=== PATIENT | male | born 1985 | race Caucasian/White ===

== ENCOUNTER 2018-05-04 11:25 | Emergency (ER) | payer BC ==
[2018-05-04] MEDS ORDERED: ASPIRIN 81 MG CHEWABLE TABLET ONE ×2 (12:03→12:08)
[2018-05-04 12:12] LABS: Absolute Monocytes 0.5 K/uL (0.1-1.3); Absolute Neutrophil 4.2 K/uL (1.8-8.0); Basophils % 0.4 % (0-1.3); Eosinophils % 0.3 % (0-4.4); Hematocrit 44.7 % (39.6-49.0); Lymphocytes % 30.3 % (15.3-44.8); MPV 8.4 fL (7.6-11.3); Monocytes % 6.9 % (3.3-12.3); RBC Red Blood Cell Count 5.04 M/uL (4.33-5.43)
[2018-05-04] MEDS ORDERED: HYDROMORPHONE HCL 0.5 MG/0.5 ML INJ ONE (12:21)
[2018-05-04] MEDS ORDERED: ONDANSETRON 4 MG/2 ML VIAL ONE (12:21)
[2018-05-04] MEDS ORDERED: KETOROLAC 30 MG/ML INJ ONE (12:21)
--- NOTE | 2018-05-04 12:24 | RAD REPORT ---
EXAM DESCRIPTION: RAD - Chest Single View - 05/04/2018 12:15 pm CLINICAL HISTORY: CHEST PAIN Chest pain. COMPARISON: No comparisons FINDINGS: Portable technique limits examination quality. The lungs are grossly clear. The heart is normal in size. No displaced fractures. IMPRESSION: No acute intrathoracic process suspected.
[2018-05-04 12:33] LABS: ALT/SGPT 55 U/L (12-78); AST/SGOT 24 U/L (15-37); Albumin 4.3 g/dL (3.4-5.0); Alkaline Phosphatase 70 U/L (45-117); BUN Blood Urea Nitrogen 8 mg/dL (7-18); Bicarbonate 25 mmol/L (21-32); Bilirubin Direct 0.1 mg/dL (0-0.2); Bilirubin Total 0.5 mg/dL (0.2-1.0); Glucose Level 109 mg/dL (74-106); Potassium 3.5 mmol/L (3.5-5.1); Protein, Total 8.1 g/dL (6.4-8.2); Sodium Level 142 mmol/L (136-145); Troponin (Emerg Dept Use Only) < 0.02 ng/mL (0.0-0.045)
--- NOTE | 2018-05-04 13:30 | ER ---
Nurse's Notes [facility] Name: Jovani Vernon Age: 33 yrs Sex: Male : 1985 Arrival Date: 05/04/2018 Time: 11:27 Bed 16 Private MD: None, None Diagnosis: Anxiety disorder, unspecified;Chest pain, unspecified;Paresthesia of skin Presentation: 05/04 11:34 Presenting complaint: Patient states: "I'm having some difficulties in my marriage and aa5 I've been stressed and today I was at work and I started sweating, having chest pain, and my left arm went numb and then my right arm went numb". Pt also reports heart palpitations. Pt states "I've smoked about 50 cigarettes in the last 24 hrs". Transition of care: patient was not received from another setting of care. Onset of symptoms was May 04, 2018. Risk Assessment: Do you want to hurt yourself or someone else? Patient reports no desire to harm self or others. Initial Sepsis Screen: Does the patient meet any 2 criteria? No. Patient's initial sepsis screen is negative. Does the patient have a suspected source of infection? No. Patient's initial sepsis screen is negative. Care prior to arrival: None. 11:34 Method Of Arrival: Ambulatory aa5 11:34 Acuity: BOO 3 aa5 Historical: - Allergies: 11:36 No Known Allergies; aa5 - PMHx: 11:36 None; aa5 - PSHx: 11:36 None; aa5 - Immunization history:: Flu vaccine status is unknown. - Social history:: Smoking status: Patient uses tobacco products, smokes one pack cigarettes per day. - Ebola Screening: : No symptoms or risks identified at this time. Screenin:00 Abuse screen: Denies threats or abuse. Denies injuries from another. Nutritional jl7 screening: No deficits noted. Tuberculosis screening: No symptoms or risk factors identified. Fall Risk IV access (20 points). Total Lopez Fall Scale indicates No Risk (0-24 pts). Assessment: 12:00 General: Appears in no apparent distress. uncomfortable, Behavior is calm, cooperative, jl7 appropriate for age. Pain: Complains of pain in anterior aspect of left upper chest Pain radiates to left jaw and left arm Pain currently is 6 out of 10 on a pain scale. Quality of pain is described as sharp, stabbing. Neuro: Level of Consciousness is awake, alert, obeys commands, Oriented to person, place, time, situation. Cardiovascular: Heart tones S1 S2 present Patient's skin is warm and dry. Respiratory: Airway is patent Respiratory effort is even, unlabored, Respiratory pattern is regular, symmetrical, Breath sounds are clear bilaterally. GI: No signs and/or symptoms were reported involving the gastrointestinal system. : No signs and/or symptoms were reported regarding the genitourinary system. EENT: Derm: Skin is pink, warm \\T\\ dry. Musculoskeletal: No signs and/or symptoms reported regarding the musculoskeletal system. 13:00 Reassessment: Patient appears in no apparent distress at this time. No changes from jl7 previously documented assessment. Patient and/or family updated on plan of care and expected duration. Pain level reassessed. Patient is alert, oriented x 3, equal unlabored respirations, skin warm/dry/pink. Vital Signs: 11:37 BP 157 / 98; Pulse 83; Resp 18 S; Temp 97.8(TE); Pulse Ox 97% on R/A; Weight 106.59 kg aa5 (R); Height 6 ft. 0 in. (182.88 cm) (R); Pain 6/10; 12:35 BP 148 / 97 LA; Pulse 66; Resp 16 S; Pulse Ox 100% on R/A; jl7 12:37 BP 150 / 100 RA; Pulse 75; Resp 16 S; Pulse Ox 97% on R/A; jl7 13:54 BP 152 / 97; Pulse 83; Resp 16 S; Pulse Ox 100% on R/A; jl7 11:37 Body Mass Index 31.87 (106.59 kg, 182.88 cm) aa5 ED Course: 11:27 Patient arrived in ED. dp 11:27 None, None is Private Physician. dp 11:34 Arm band placed on. aa5 11:36 Triage completed. aa5 11:45 Jodi Iglesias, TAMIE is Primary Nurse. jl7 11:47 Katt Olson FNP-C is [facility]. snw 11:47 Dereje Yung MD is Attending Physician. snw 11:58 EKG done, by hearing aid technician. reviewed by Katt CORONADO. 3 12:00 Patient has correct armband on for positive identification. Placed in gown. Bed in low jl7 position. Call light in reach. Side rails up X 1. hospital monitor on. Pulse ox on. NIBP on. Warm blanket given. 12:00 Initial lab(s) drawn, by me, sent to lab. Inserted saline lock: 20 gauge in left jl7 antecubital area, using aseptic technique. Blood collected. 12:15 XRAY Chest (1 view) In Process Unspecified. EDMS 12:15 X-ray completed. Portable x-ray completed in exam room. Patient tolerated procedure mh1 well. 13:54 No provider procedures requiring assistance completed. IV discontinued, intact, jl7 bleeding controlled, No redness/swelling at site. Pressure dressing applied. Administered Medications: 12:00 Drug: Aspirin Chewable Tablet 324 mg Route: PO; jl7 12:30 Follow up: Response: No adverse reaction jl7 Outcome: 13:30 Discharge ordered by . snwilly 13:54 Discharged to home ambulatory. jl7 13:54 Condition: stable 13:54 Discharge instructions given to patient, family, Instructed on discharge instructions, follow up and referral plans. Demonstrated understanding of instructions, follow-up care. 13:55 Patient left the ED. jl7 Signatures: Dispatcher [employer] EDVT Katt Olson FNP-C FNP-CsnKiki Webber 1 Yuko Fragoso, RN RN aa5 Jodi Iglesias RN RN jl7 Leslie Ludwig 3 Sony Cole Corrections: (The following items were deleted from the chart) 11:38 11:34 Presenting complaint: Patient states: "I'm having some difficulties in my aa5 marriage and I've been stressed and today I was at work and I started sweating, having chest pain, and my left arm went numb and then my right arm went numb". Pt also reports heart palpitations aa5
--- NOTE | 2018-05-04 13:30 | EDPHYS ---
Physician Documentation [facility] Name: Jovani Vernon Age: 33 yrs Sex: Male : 1985 Arrival Date: 05/04/2018 Time: 11:27 Bed 16 Private MD: None, None ED Physician Dereje Yung HPI: 05/04 12:14 This 33 yrs old Male presents to ER via Ambulatory with complaints of Left snw arm numbness/possible panic attack. 12:14 Onset: The symptoms/episode began/occurred suddenly, just prior to arrival. Associated snw signs and symptoms: Pertinent positives: chest pain, cough, shortness of breath, numbness to bilateral arms. Modifying factors: The patient symptoms are alleviated by nothing. The patient has experienced a previous episode, but today's symptoms are worse. It is unknown whether or not the patient has recently seen a physician. + high stress at present. Historical: - Allergies: 11:36 No Known Allergies; aa5 - PMHx: 11:36 None; aa5 - PSHx: 11:36 None; aa5 - Immunization history:: Flu vaccine status is unknown. - Social history:: Smoking status: Patient uses tobacco products, smokes one pack cigarettes per day. - Ebola Screening: : No symptoms or risks identified at this time. ROS: 12:14 Eyes: Negative for injury, pain, redness, and discharge, ENT: Negative for injury, snw pain, and discharge, Neck: Negative for injury, pain, and swelling. 12:14 Back: Negative for injury and pain, : Negative for injury, bleeding, discharge, and swelling. 12:14 Neuro: Negative for headache, weakness, numbness, tingling, and seizure. 12:14 Constitutional: Positive for body aches, malaise. 12:14 Cardiovascular: Positive for chest pain, palpitations. 12:14 Respiratory: Positive for cough, shortness of breath. 12:14 Abdomen/GI: Positive for nausea. 12:14 MS/extremity: Positive for paresthesias, tingling, numbness. 12:14 Psych: Positive for anxiety. Exam: 12:14 Head/Face: Normocephalic, atraumatic. Eyes: Pupils equal round and reactive to light, snw extra-ocular motions intact. Lids and lashes normal. Conjunctiva and sclera are non-icteric and not injected. Cornea within normal limits. Periorbital areas with no swelling, redness, or edema. ENT: Nares patent. No nasal discharge, no septal abnormalities noted. Tympanic membranes are normal and external auditory canals are clear. Oropharynx with no redness, swelling, or masses, exudates, or evidence of obstruction, uvula midline. Mucous membranes moist. Neck: Trachea midline, no thyromegaly or masses palpated, and no cervical lymphadenopathy. Supple, full range of motion without nuchal rigidity, or vertebral point tenderness. No Meningismus. Chest/axilla: Normal chest wall appearance and motion. Nontender with no deformity. No lesions are appreciated. Cardiovascular: Regular rate and rhythm with a normal S1 and S2. No gallops, murmurs, or rubs. Normal PMI, no JVD. No pulse deficits. Respiratory: Lungs have equal breath sounds bilaterally, clear to auscultation and percussion. No rales, rhonchi or wheezes noted. No increased work of breathing, no retractions or nasal flaring. Abdomen/GI: Soft, non-tender, with normal bowel sounds. No distension or tympany. No guarding or rebound. No evidence of tenderness throughout. Back: No spinal tenderness. No costovertebral tenderness. Full range of motion. Skin: Warm, dry with normal turgor. Normal color with no rashes, no lesions, and no evidence of cellulitis. MS/ Extremity: Pulses equal, no cyanosis. Neurovascular intact. Full, normal range of motion. Neuro: Awake and alert, GCS 15, oriented to person, place, time, and situation. Cranial nerves II-XII grossly intact. Motor strength 5/5 in all extremities. Sensory grossly intact. Cerebellar exam normal. Normal gait. 12:14 Constitutional: The patient appears alert, awake, anxious. 12:14 Psych: Behavior/mood is pleasant, cooperative, anxious. Vital Signs: 11:37 BP 157 / 98; Pulse 83; Resp 18 S; Temp 97.8(TE); Pulse Ox 97% on R/A; Weight 106.59 kg aa5 (R); Height 6 ft. 0 in. (182.88 cm) (R); Pain 6/10; 12:35 BP 148 / 97 LA; Pulse 66; Resp 16 S; Pulse Ox 100% on R/A; jl7 12:37 BP 150 / 100 RA; Pulse 75; Resp 16 S; Pulse Ox 97% on R/A; jl7 13:54 BP 152 / 97; Pulse 83; Resp 16 S; Pulse Ox 100% on R/A; jl7 11:37 Body Mass Index 31.87 (106.59 kg, 182.88 cm) aa5 MDM: 11:48 Patient medically screened. snw 13:34 Data reviewed: vital signs, nurses notes. Data interpreted: Pulse oximetry: on room air snw is 97 %. Interpretation: normal. Counseling: I had a detailed discussion with the patient and/or guardian regarding: the historical points, exam findings, and any diagnostic results supporting the discharge/admit diagnosis, the presence of at least one elevated blood pressure reading (>120/80) during this emergency department visit, lab results, radiology results, the need for outpatient follow up, to return to the emergency department if symptoms worsen or persist or if there are any questions or concerns that arise at home. Special discussion: Based on the patient's history, exam, and Dx evaluation, there is no indication for emergent intervention or inpatient Tx. It is understood by the patient/guardian that if the Sx's persist or worsen they need to return immediately for re-evaluation. I have referred the patient to see his PCP for further evaluation of high blood pressure. Based on the history and exam findings, there is no indication for further emergent testing or inpatient evaluation. I discussed with the patient/guardian the need to see the primary care provider for further evaluation of the symptoms. I discussed with the patient/guardian the need to see the psychiatrist for further evaluation of the symptoms. 05/04 11:48 Order name: Basic Metabolic Panel; Complete Time: 12:36 snw 05/04 11:48 Order name: CBC with Diff; Complete Time: 12:24 snw 05/04 11:48 Order name: LFT's; Complete Time: 12:36 snw 05/04 11:48 Order name: Magnesium; Complete Time: 12:36 w 05/04 11:48 Order name: PT-INR; Complete Time: 12:24 snw 05/04 11:48 Order name: Troponin (emerg Dept Use Only); Complete Time: 12:36 snw 05/04 11:48 Order name: XRAY Chest (1 view); Complete Time: 12:27 snw 05/04 11:48 Order name: EKG; Complete Time: 11:49 snw 05/04 11:48 Order name: Cardiac monitoring; Complete Time: 13:04 [facility] 05/04 11:48 Order name: EKG - Nurse/Tech; Complete Time: 13:04 w 05/04 11:48 Order name: IV Saline Lock; Complete Time: 13:03 [facility] 05/04 11:48 Order name: Labs collected and sent; Complete Time: 13:03 [facility] 05/04 11:48 Order name: O2 Per Protocol; Complete Time: 13:03 w 05/04 11:48 Order name: O2 Sat Monitoring; Complete Time: 13:03 [facility] 05/04 11:48 Order name: Bilateral blood pressure; Complete Time: 12:37 snw Administered Medications: 12:00 Drug: Aspirin Chewable Tablet 324 mg Route: PO; jl7 12:30 Follow up: Response: No adverse reaction jl7 Disposition: 15:07 Co-signature as Attending Physician, Dereje Yung MD I agree with the assessment and moustapha plan of care. Disposition: 05/04/18 13:30 Discharged to Home. Impression: Anxiety disorder, unspecified, Chest pain, unspecified, Paresthesia of skin. - Condition is Stable. - Discharge Instructions: Panic Attacks, Nonspecific Chest Pain, Paresthesia, Generalized Anxiety Disorder. - Work release form, Medication Reconciliation Form, Thank You Letter, Antibiotic Education, Prescription Opioid Use form. - Follow up: Private Physician; When: 2 - 3 days; Reason: Recheck today's complaints, Continuance of care, Re-evaluation by your physician. Follow up: Emergency Department; When: As needed; Reason: Worsening of condition. Signatures: Dispatcher [employer] Dereje Watson MD MD cha Therrien, Shelly, DOWEL SETTING MACHINE OPERATOR-C DOWEL SETTING MACHINE OPERATOR-Csnw Yuko Fragoso, RN RN [email or web address] Jodi Iglesias RN RN jl7 Corrections: (The following items were deleted from the chart) 13:55 13:30 05/04/2018 13:30 Discharged to Home. Impression: Anxiety disorder, unspecified; jl7 Chest pain, unspecified; Paresthesia of skin. Condition is Stable. Forms are Medication Reconciliation Form, Thank You Letter, Antibiotic Education, Prescription Opioid Use. Follow up: Private Physician; When: 2 - 3 days; Reason: Recheck today's complaints, Continuance of care, Re-evaluation by your physician. Follow up: Emergency Department; When: As needed; Reason: Worsening of condition. snw
--- NOTE | 2018-05-04 17:28 | EKG ---
Test Date: 2018-05-04 Test Time: 11:48:20 Network Support: [facility]A MEASUREMENT RESULTS: Intervals: Rate: 73 NJ: 128 QRSD: 96 QT: 376 QTc: 414 [place]: P: 45 NJ: 128 QRS: 60 T: 28 INTERPRETIVE STATEMENTS: Normal sinus rhythm Normal ECG No previous ECG available for comparison Electronically Signed On 05-04-18 17:27:10 CDT by Juan Renee
== END 2018-05-04 13:55 | disposition home or self-care (01) ==
LOC: ER 11:25
DX: F41.9 Anxiety disorder, unspecified (principal); R07.9 Chest pain, unspecified; R20.2 Paresthesia of skin; Z72.0 Tobacco use; F17.210 Nicotine dependence, cigarettes, uncomplicated
CPT/HCPCS: 36415; 71045; 80048; 80076; 83735; 84484; 85025; 85610; 93005; 99284; J1170; J2405

== ENCOUNTER 2018-05-13 10:49 | Emergency (ER) | payer BC ==
[2018-05-13] MEDS ORDERED: MEPERIDINE HCL 50 MG/ML AMP ONE (11:55)
[2018-05-13] MEDS ORDERED: IBUPROFEN 400 MG TAB ONE (11:56)
[2018-05-13] MEDS ORDERED: DEXAMETHASONE 10 MG/ML VIAL ONE (11:56)
--- NOTE | 2018-05-13 12:37 | EDPHYS ---
Physician Documentation [facility] Name: Jovani Vernon Age: 33 yrs Sex: Male : 1985 Arrival Date: 05/13/2018 Time: 10:51 Bed 15 Private MD: ED Physician Vin Dunlap HPI: 05/13 11:32 This 33 yrs old Male presents to ER via Ambulatory with complaints of Back rn Pain. 11:32 The patient presents with pain that is acute. The symptoms are located in the low back. rn Onset: The symptoms/episode began/occurred 2 day(s) ago. The pain radiates to the right leg. Modifying factors: The patient symptoms are alleviated by remaining still, specific position, the patient symptoms are aggravated by any movement. Severity of symptoms: At their worst the symptoms were moderate, in the emergency department the symptoms are unchanged. The patient has experienced similar episodes in the past. Denies urinary symptoms, no hx of kidney stones. + chronic back pain but never this bad.. Historical: - Allergies: 11:20 PENICILLINS; aa5 - PMHx: 11:20 None; aa5 - PSHx: 11:20 None; aa5 - Immunization history:: Flu vaccine is not up to date. - Social history:: Smoking status: Patient uses tobacco products, smokes one pack cigarettes per day. - Ebola Screening: : No symptoms or risks identified at this time. - Family history:: not pertinent. - Hospitalizations: : No recent hospitalization is reported. ROS: 11:32 Constitutional: Negative for fever, chills, and weight loss, Eyes: Negative for injury, rn pain, redness, and discharge, Neck: Negative for injury, pain, and swelling, Cardiovascular: Negative for chest pain, palpitations, and edema, Respiratory: Negative for shortness of breath, cough, wheezing, and pleuritic chest pain, Abdomen/GI: Negative for abdominal pain, nausea, vomiting, diarrhea, and constipation, Back: + right lower back pain MS/Extremity: Negative for injury and deformity, Skin: Negative for injury, rash, and discoloration, Neuro: Negative for headache, weakness, and seizure, + tingling and numbness RLE Exam: 11:32 Constitutional: This is a well developed, well nourished patient who is awake, alert, rn appears in pain, laying prone in bed Abdomen/GI: Soft, non-tender. No distension or tympany. No guarding or rebound. No evidence of tenderness throughout. Back: No spinal tenderness. No costovertebral tenderness. + right lower back tenderness, painful ROM with twisting and movement of RLE Skin: Warm, dry with normal turgor. Normal color with no rashes, no lesions, and no evidence of cellulitis. MS/ Extremity: Pulses equal, no cyanosis. Neuro: Awake and alert, GCS 15, oriented to person, place, time, and situation. Vital Signs: 11:21 BP 147 / 105; Pulse 75; Resp 18 S; Temp 98.0(TE); Pulse Ox 98% on R/A; Weight 106.59 kg aa5 (R); Height 6 ft. 0 in. (182.88 cm) (R); Pain 10/10; 12:50 BP 142 / 95; Pulse 74; Resp 18; Pulse Ox 100% on R/A; hj 11:21 Body Mass Index 31.87 (106.59 kg, 182.88 cm) aa5 MDM: 11:23 Patient medically screened. rn 12:36 Differential diagnosis: arthritis, chronic back pain, Fatigue Osteoarthritis sprain, rn Ureterolithiasis radiculopathy. Data reviewed: vital signs, nurses notes, and as a result, I will discharge patient. Counseling: I had a detailed discussion with the patient and/or guardian regarding: the historical points, exam findings, and any diagnostic results supporting the discharge/admit diagnosis, the need for outpatient follow up, to return to the emergency department if symptoms worsen or persist or if there are any questions or concerns that arise at home. Response to treatment: the patient's symptoms have mildly improved after treatment, and as a result, I will discharge patient. Special discussion: I discussed with the patient/guardian in detail that at this point there is no indication for admission to the hospital. It is understood, however, that if the symptoms persist or worsen the patient needs to return immediately for re-evaluation. Based on the history and exam findings, there is no indication for further emergent testing or inpatient evaluation. I discussed with the patient/guardian the need to see the back specialist for further evaluation of the symptoms. 12:37 ED course: More comfortable, still having pain, will dc home with continuation of rn meds/stretching/heat and pcp f/u. . 05/13 11:30 Order name: IV Start; Complete Time: 11:47 rn Administered Medications: 11:37 Drug: Decadron - Dexamethasone 10 mg Route: IVP; Site: left forearm; hj 11:37 Drug: Demerol 50 mg Route: IVP; Site: left forearm; hj 11:37 Drug: Motrin 800 mg Route: PO; hj 12:48 Drug: morphine 4 mg Route: IVP; Site: right forearm; hj Disposition: 05/13/18 12:37 Discharged to Home. Impression: Low back pain, Radiculopathy, lumbosacral region. - Condition is Stable. - Discharge Instructions: Back Pain, Adult, Lumbosacral Radiculopathy. - Prescriptions for Tylenol- Codeine #3 300-30 mg Oral Tablet - take 2 tablets by ORAL route every 6 hours As needed; 20 tablet. Cyclobenzaprine 10 mg Oral Tablet - take 1 tablet by ORAL route every 8 hours As needed; 20 tablet. Medrol (Sudeep) 4 mg Oral Tablets, Dose Pack - take 1 tablet by ORAL route as directed - follow package instructions; 1 packet. - Medication Reconciliation Form, Thank You Letter, Antibiotic Education, Prescription Opioid Use form. - Follow up: Private Physician; When: As needed; Reason: Recheck today's complaints, Re-evaluation by your physician. - Problem is an acute exacerbation. - Symptoms have improved. Signatures: Vin Dunlap MD MD rn Calderon, Audri, RN RN [facility] Mariano Amado RN RN Corrections: (The following items were deleted from the chart) 11:13 11:11 Allergies: No Known Allergies; aa5 aa5 11:13 11:11 PSHx: None; aa5 aa5 11:13 11:12 Social history: Smoking status: Patient/guardian denies using tobacco, aa5 5 11:13 11:12 Immunization history: Flu vaccine is not up to date. aa5 aa5 11:21 11:11 Ebola Screening: No symptoms or risks identified at this time aa5 aa5 12:50 12:37 05/13/2018 12:37 Discharged to Home. Impression: Low back pain; Radiculopathy, hj lumbosacral region. Condition is Stable. Forms are Medication Reconciliation Form, Thank You Letter, Antibiotic Education, Prescription Opioid Use. Follow up: Private Physician; When: As needed; Reason: Recheck today's complaints, Re-evaluation by your physician. Problem is an acute exacerbation. Symptoms have improved. rn
--- NOTE | 2018-05-13 12:37 | ER ---
[facility] Name: Jovani Vernon Age: 33 yrs Sex: Male : 1985 Arrival Date: 05/13/2018 Time: 10:51 Bed 15 Private MD: Diagnosis: Low back pain;Radiculopathy, lumbosacral region Presentation: 05/13 11:19 Presenting complaint: Patient states: pain to right lower back radiating down to right aa5 leg x 1 day ago. Pt appears uncomfortable in triage. Denies known injury. Transition of care: patient was not received from another setting of care. Onset of symptoms. Risk Assessment: Do you want to hurt yourself or someone else? Patient reports no desire to harm self or others. Initial Sepsis Screen: Does the patient meet any 2 criteria? No. Patient's initial sepsis screen is negative. Does the patient have a suspected source of infection? No. Patient's initial sepsis screen is negative. Care prior to arrival: None. 11:19 Method Of Arrival: Ambulatory aa5 11:19 Acuity: BOO 4 aa5 Historical: - Allergies: 11:20 PENICILLINS; aa5 - PMHx: 11:20 None; aa5 - PSHx: 11:20 None; aa5 - Immunization history:: Flu vaccine is not up to date. - Social history:: Smoking status: Patient uses tobacco products, smokes one pack cigarettes per day. - Ebola Screening: : No symptoms or risks identified at this time. - Family history:: not pertinent. - Hospitalizations: : No recent hospitalization is reported. Screenin:30 Abuse screen: Denies threats or abuse. Denies injuries from another. Nutritional hj screening: No deficits noted. Tuberculosis screening: No symptoms or risk factors identified. Fall Risk None identified. Assessment: 11:30 General: Appears in no apparent distress. uncomfortable, Behavior is calm, cooperative, hj appropriate for age. Pain: Complains of pain in back and right leg. Neuro: Level of Consciousness is awake, alert, obeys commands, Oriented to person, place, time, situation, Appropriate for age. Cardiovascular: Capillary refill < 3 seconds Patient's skin is warm and dry. Respiratory: Airway is patent Respiratory effort is even, unlabored, Respiratory pattern is regular, symmetrical. GI: No signs and/or symptoms were reported involving the gastrointestinal system. : No signs and/or symptoms were reported regarding the genitourinary system. EENT: Derm: No signs and/or symptoms reported regarding the dermatologic system. Musculoskeletal: No signs and/or symptoms reported regarding the musculoskeletal system. 11:30 Reassessment: Patient and/or family updated on plan of care and expected duration. Pain hj level reassessed. Patient is alert, oriented x 3, equal unlabored respirations, skin warm/dry/pink. awaiting for pain reassessment;. Vital Signs: 11:21 BP 147 / 105; Pulse 75; Resp 18 S; Temp 98.0(TE); Pulse Ox 98% on R/A; Weight 106.59 kg aa5 (R); Height 6 ft. 0 in. (182.88 cm) (R); Pain 10/10; 12:50 BP 142 / 95; Pulse 74; Resp 18; Pulse Ox 100% on R/A; hj 11:21 Body Mass Index 31.87 (106.59 kg, 182.88 cm) aa5 ED Course: 10:51 Patient arrived in ED. rg4 11:11 Triage completed. aa5 11:11 Arm band placed on. aa5 11:23 Vin Dunlap MD is Attending Physician. rn 11:30 Patient has correct armband on for positive identification. Bed in low position. Call hj light in reach. Side rails up X 1. 11:36 Mariano Amado, RN is Primary Nurse. hj 11:37 Inserted saline lock: 22 gauge in left forearm, using aseptic technique. hj 12:49 No provider procedures requiring assistance completed. IV discontinued, intact, hj bleeding controlled, No redness/swelling at site. Pressure dressing applied. Administered Medications: 11:37 Drug: Decadron - Dexamethasone 10 mg Route: IVP; Site: left forearm; hj 11:37 Drug: Demerol 50 mg Route: IVP; Site: left forearm; hj 11:37 Drug: Motrin 800 mg Route: PO; hj 12:48 Drug: morphine 4 mg Route: IVP; Site: right forearm; hj Outcome: 12:37 Discharge ordered by . rn 12:49 Discharged to home ambulatory, with family. hj 12:49 Condition: stable 12:49 Discharge instructions given to patient, family, Instructed on discharge instructions, follow up and referral plans. medication usage, Demonstrated understanding of instructions, follow-up care, medications, Prescriptions given X 3. 12:50 Patient left the ED. Signatures: Vin Dunlap MD MD rn Calderon, Audri RN RN [facility] Mariano Amado RN Colleen Thomas rg4 Corrections: (The following items were deleted from the chart) 11:11 Presenting complaint: Patient states: rash that it's itchy to letitia arms, chest, aa5 and back x 1 week ago [facility] 11:11 Transition of care: patient was not received from another setting of care. [place] [id number] 11:11 Risk Assessment: Do you want to hurt yourself or someone else? Patient reports no [facility] desire to harm self or others. [facility] 11:11 Initial Sepsis Screen: Does the patient meet any 2 criteria? No. Patient's [facility] initial sepsis screen is negative. Does the patient have a suspected source of infection? No. Patient's initial sepsis screen is negative. [facility] 11:11 Onset of symptoms was May 2018 [place] [address] 11:11 Care prior to arrival: None. [place] [address] 11:11 Method Of Arrival: Ambulatory [place] [address] 11:11 Acuity: BOO 5 [place] [address] 11:11 Allergies: No Known Allergies; [place] [address] 11:11 PSHx: None; [place] [address] 11:12 Social history: Smoking status: Patient/guardian denies using tobacco, [place] [address] 11:12 Immunization history: Flu vaccine is not up to date. [place] [address] 11:11 Ebola Screening: No symptoms or risks identified at this time [place] [address]
[2018-05-13] MEDS ORDERED: MORPHINE 4 MG/ML SYR ONE (12:51)
== END 2018-05-13 12:50 | disposition home or self-care (01) ==
LOC: ER 10:49
DX: M54.5 Low back pain (principal); M54.17 Radiculopathy, lumbosacral region; Z88.0 Allergy status to penicillin; F17.210 Nicotine dependence, cigarettes, uncomplicated
CPT/HCPCS: 99283; J1100; J2175

== ENCOUNTER 2021-01-27 17:50 | Emergency (ER) | payer BC, SELFPAY ==
--- OUTSIDE RECORDS SUMMARY | 2021-01-27 17:54 | XMS REPORT | Continuity of Care Document ---
:1985 Author Organization [facility] t Address [address] [place] [address] [address] [place] [address] Care Team Providers Name Role Phone PCP, DOES NOT HAVE A Primary Care Physician Unavailable Lonnie CAMPOS Attending Clinician Unavailable Candice FINLEY Attending Clinician Unavailable Payers Payer Name Policy Type Policy Number Effective Date Expiration Date S [place] [facility] [id number] 2016 00:00:00 Problems This patient has no known problems. Allergies, Adverse Reactions, Alerts Allergy Allergy Status Severity Reaction(s) Onset Inactive Treating Comm ents Source Name Type Date Date Clinician PENICILL Drug Active Rash [facility] INS Class 3-15 ity of 00:00: [address] NO KNOWN Drug Active Univers ALLERGIE Class ity of [facility] Medications This patient has no known medications. Procedures This patient has no known procedures. Encounters Start End Encounter Admission Attending Care Care Encounter Source Date/Time Date/Time Type Type Clinicians Facility Department ID 2019-04-29 2019-04-29 Outpatient Erica CAMPOS [facility] [id number] Univers 08:00:00 08:00:00 LALY [id number] [facility] 2019-04-29 2019-04-29 Outpatient Erica CAMPOS [facility] [id number] [facility] 08:00:00 08:00:00 LALY [facility] 2019-04-25 2019-04-25 Outpatient Erica FINLEY [facility] [id number] Univers 17:01:15 23:59:00 SURESH [facility] 2019-04-25 2019-04-25 Outpatient TUSHAR [facility] [id number] Univers 17:05:00 17:05:00 SURESH [id number] [facility] Results This patient has no known results.
[2021-01-27] MEDS ORDERED: ACETAMINOPHEN 500 MG TAB ONE (18:01)
[2021-01-27 19:01] LABS: SARS-COV-2 RT PCR POSITIVE (NEGATIVE)
[2021-01-27] MEDS ORDERED: KETOROLAC 30 MG/ML INJ ONE ×2 (20:52→20:56)
--- NOTE | 2021-01-27 21:05 | ER ---
Nurse's Notes [facility] Name: Jovani Vernon Age: 35 yrs Sex: Male : 1985 Arrival Date: 01/27/2021 Time: 17:51 Bed 15 Private MD: Diagnosis: Coronavirus infection, unspecified Presentation: 01/27 17:58 Chief complaint: Patient states: body aches, fever and mild cough that began today. ss Coronavirus screen: Client denies travel out of the [place] in the last 14 days. Ebola Screen: Patient denies exposure to infectious person. Patient denies travel to an Ebola-affected area in the 21 days before illness onset. Initial Sepsis Screen: Does the patient meet any 2 criteria? No. Patient's initial sepsis screen is negative. Does the patient have a suspected source of infection? No. Patient's initial sepsis screen is negative. Risk Assessment: Do you want to hurt yourself or someone else? Patient reports no desire to harm self or others. Onset of symptoms was January 27, 2021. 17:58 Method Of Arrival: Ambulatory ss 17:58 Acuity: BOO 4 ss Triage Assessment: 21:02 General: Appears in no apparent distress. bb 21:02 General: Behavior is calm, cooperative. bb 21:38 Pain: Denies pain. as6 Historical: - Allergies: 17:59 PENICILLINS; ss - Home Meds: 17:59 None [Active]; ss - PMHx: 17:59 None; ss - PSHx: 17:59 None; ss - Immunization history:: Client reports having NOT received the Covid vaccine. - Social history:: Smoking status: Patient denies any tobacco usage or history of. Screenin:01 Abuse screen: Denies threats or abuse. Nutritional screening: No deficits noted. bb Tuberculosis screening: No symptoms or risk factors identified. Fall Risk None identified. Assessment: 21:00 Reassessment: Patient is alert, oriented x 3, equal unlabored respirations, skin bb warm/dry/pink. pt states he is feeling better now awaiting diagnostic results. Vital Signs: 17:58 BP 124 / 82; Pulse 108; Resp 18; Temp 101.0(TE); Pulse Ox 100% on R/A; Weight 102.06 ss kg; Height 5 ft. 11 in. (180.34 cm); Pain 10/10; 20:57 BP 112 / 62; Pulse 96; Resp 18; Pulse Ox 98% on R/A; mk 21:00 BP 112 / 62; Pulse 95; Resp 16 S; Temp 98.3(O); Pulse Ox 99% on R/A; bb 17:58 Body Mass Index 31.38 (102.06 kg, 180.34 cm) [place] Coma Score: 20:57 Eye Response: spontaneous(4). Verbal Response: oriented(5). Motor Response: obeys mk commands(6). Total: 15. ED Course: 17:51 Patient arrived in ED. ds1 17:59 Triage completed. ss 17:59 Arm band placed on left wrist. ss 18:12 COVID-19/FLU A+B (Document "Date of Onset" if Symptomatic) Sent. 19:28 Marcello Shultz NP is PHCP. pm1 19:28 Kendall Painting MD is Attending Physician. pm1 20:47 Francesca Duarte, TAMIE is Primary Nurse. mk 21:01 Patient has correct armband on for positive identification. Bed in low position. Call bb light in reach. Side rails up X 1. Pulse ox on. NIBP on. 21:01 No provider procedures requiring assistance completed. bb 21:38 Patient did not have IV access during this emergency room visit. as6 Administered Medications: 18:11 Drug: Tylenol 1000 mg Route: PO; ss 21:00 Follow up: Response: No adverse reaction; Temperature is decreased bb 21:38 Follow up: Response: No adverse reaction as6 20:59 Drug: Ketorolac 60 mg Route: IM; Site: right gluteus; bb 21:39 Follow up: Response: No adverse reaction as6 Outcome: 21:05 Discharge ordered by . pm1 21:38 Discharged to home ambulatory, with significant other. as6 21:38 Condition: stable 21:38 Discharge instructions given to patient, Instructed on discharge instructions, follow up and referral plans. medication usage, Demonstrated understanding of instructions, follow-up care, medications, Prescriptions given X 1. 21:38 Patient left the ED. as6 Signatures: Lianet Barraza ds1 Cassandra Eden RN RN bb Geetha Dorman RN RN Marcello Shultz NP [employer]EARCH MANUFACTURING OPERATOR pm1 Marco Hernandez, RN RN as6 Francesca Duarte, RN RN mk
--- NOTE | 2021-01-27 21:06 | EDPHYS ---
Physician Documentation [facility] Name: Jovani Vernon Age: 35 yrs Sex: Male : 1985 Arrival Date: 01/27/2021 Time: 17:51 Bed 15 Private MD: ED Physician Kendall Painting HPI: 01/27 19:47 This 35 yrs old Male presents to ER via Ambulatory with complaints of Body Aches, pm1 Chills. 19:47 The patient or guardian reports cough, with no sputum, flu symptoms, Body aches and pm1 chills. Onset: The symptoms/episode began/occurred today. Severity of symptoms: in the emergency department the symptoms are actually worse. Modifying factors: The symptoms are alleviated by nothing, the symptoms are aggravated by nothing. Associated signs and symptoms: Pertinent negatives: chest pain, diarrhea, ear ache, sore throat, vomiting, Shortness of breath. The patient has not experienced similar symptoms in the past. The patient has not recently seen a physician. Historical: - Allergies: 17:59 PENICILLINS; ss - Home Meds: 17:59 None [Active]; ss - PMHx: 17:59 None; ss - PSHx: 17:59 None; ss - Immunization history:: Client reports having NOT received the Covid vaccine. - Social history:: Smoking status: Patient denies any tobacco usage or history of. ROS: 19:47 Eyes: Negative for injury, pain, redness, and discharge, ENT: Negative for injury, pm1 pain, and discharge, Neck: Negative for injury, pain, and swelling, Cardiovascular: Negative for chest pain, palpitations, and edema, Abdomen/GI: Negative for abdominal pain, nausea, vomiting, diarrhea, and constipation, Back: Negative for injury and pain. 19:47 MS/Extremity: Negative for injury and deformity, Skin: Negative for injury, rash, and discoloration, Neuro: Negative for headache, weakness, numbness, tingling, and seizure. 19:47 Constitutional: Positive for body aches, chills, fever, Negative for poor PO intake. 19:47 Respiratory: Positive for cough, Negative for shortness of breath. 19:47 All other systems are negative. Exam: 19:47 Constitutional: This is a well developed, well nourished patient who is awake, alert, pm1 and in no acute distress. Head/Face: Normocephalic, atraumatic. 19:47 Skin: Warm, dry with normal turgor. Normal color with no rashes, no lesions, and no evidence of cellulitis. MS/ Extremity: Pulses equal, no cyanosis. Neurovascular intact. Full, normal range of motion. 19:47 Eyes: Exam is negative for acute changes, Extraocular movements: no acute changes, Conjunctiva: no acute changes, no injection. 19:47 ENT: Exam is negative for acute changes, Mouth: no acute changes, Lips: normal, moist, Oral mucosa: normal, pink and intact, moist. 19:47 Cardiovascular: Exam negative for acute changes, Rate: normal, Rhythm: regular, Pulses: no pulse deficits are appreciated, Heart sounds: normal, normal S1and S2. 19:47 Respiratory: Exam negative for acute changes, respiratory distress, shortness of breath. 19:47 Neuro: Exam negative for acute changes, Orientation: is normal, Mentation: is normal, Motor: is normal, moves all fours. Vital Signs: 17:58 BP 124 / 82; Pulse 108; Resp 18; Temp 101.0(TE); Pulse Ox 100% on R/A; Weight 102.06 ss kg; Height 5 ft. 11 in. (180.34 cm); Pain 10/10; 20:57 BP 112 / 62; Pulse 96; Resp 18; Pulse Ox 98% on R/A; mk 21:00 BP 112 / 62; Pulse 95; Resp 16 S; Temp 98.3(O); Pulse Ox 99% on R/A; bb 17:58 Body Mass Index 31.38 (102.06 kg, 180.34 cm) ss [place] Coma Score: 20:57 Eye Response: spontaneous(4). Verbal Response: oriented(5). Motor Response: obeys mk commands(6). Total: 15. MDM: 19:39 Patient medically screened. pm1 19:47 Data reviewed: vital signs. Data interpreted: Pulse oximetry: on room air is 100 %. pm1 Interpretation: normal. 21:04 Counseling: I had a detailed discussion with the patient and/or guardian regarding: the pm1 historical points, exam findings, and any diagnostic results supporting the discharge/admit diagnosis, lab results, the need for outpatient follow up, to return to the emergency department if symptoms worsen or persist or if there are any questions or concerns that arise at home. 21:08 ED course: [place] reviewed. pm1 01/27 18:00 Order name: COVID-19/FLU A+B (Document "Date of Onset" if Symptomatic); Complete Time: ss 19:28 01/27 19:48 Order name: Vital Signs; Complete Time: 21:00 pm1 Administered Medications: 18:11 Drug: Tylenol 1000 mg Route: PO; ss 21:00 Follow up: Response: No adverse reaction; Temperature is decreased bb 21:38 Follow up: Response: No adverse reaction as6 20:59 Drug: Ketorolac 60 mg Route: IM; Site: right gluteus; bb 21:39 Follow up: Response: No adverse reaction as6 Disposition: 01/28 04:25 Co-signature as Attending Physician, Kendall Painting MD. 7 Disposition Summary: 01/27/21 21:05 Discharge Ordered Location: Home pm1 Problem: new pm1 Symptoms: have improved pm1 Condition: Stable pm1 Diagnosis - Coronavirus infection, unspecified pm1 Followup: pm1 - With: Emergency Department - When: As needed - Reason: Worsening of condition Followup: pm1 - With: Private Physician - When: 2 - 3 days - Reason: Recheck today's complaints, Continuance of care, Re-evaluation by your physician Discharge Instructions: - Discharge Summary Sheet pm1 - COVID-19 pm1 - COVID-19 Frequently Asked Questions pm1 - 10 Things You Can Do to Manage Your COVID-19 Symptoms at Home - [facility] pm1 - COVID-19: Quarantine vs. Isolation - [facility] pm1 Forms: - Medication Reconciliation Form pm1 - Thank You Letter pm1 - Antibiotic Education pm1 - Prescription Opioid Use pm1 Prescriptions: - Guaifenesin AC 10-100 mg/5 mL Oral Liquid - take 10 milliliters by ORAL route every 4 hours As needed; 240 milliliter; pm1 Refills: 0, Product Selection Permitted Signatures: Dispatcher [employer] Cassandra Figueroa RN RN Geetha Garay RN RN ss Marcello Shultz, LAWN CARETAKER LAWN CARETAKER pm1 Kendall Painting MD MD [facility] Marco Hernandez RN as6
[2021-01-27 22:08] VITALS: BP 112/62
[2021-01-27 22:09] VITALS: TEMP 98.3; O2SAT 99
== END 2021-01-27 21:38 | disposition home or self-care (01) ==
LOC: ER 17:50
DX: U07.1 COVID-19 (principal); Z88.0 Allergy status to penicillin
CPT/HCPCS: 0240U; 96372; 99284

== ENCOUNTER 2023-01-15 09:22 | Emergency (ER) | payer SELFPAY ==
--- OUTSIDE RECORDS SUMMARY | 2023-01-15 09:24 | XMS REPORT | Continuity of Care Document ---
Author Name Unknown Address [address] [place] [address] [facility] thconnect Address [address] [place] [address] Care Team Providers Care Internet Sales Consultant Name Role Phone PCP, PATIENT DOES NOT HAVE A Primary Care Physic brooklynn LALY Sewell Attending Clinician SURESH Delgado Attending Clinician Unavailable Payers Payer Name Policy Type Policy Number Effective Date Expirati on Date Source [facility] [id number] 2016 00:00:00 Allergies, Adverse Reactions, Alerts Allergy Name Allergy Type Status Severity Reaction(s) Onset Date Inactive Date Treating Clinician Comments Source PENICILL INS Drug Class Active Rash 04-24 00:00: 00 [facility] NO KNOWN ALLERGIE S Drug Class Active [facility] Encounters Start Date/Time End Date/Time Encounter Type Admission Type Attending Clinicians Care Facility Care Department Encounter ID Source 2019-04-29 08:00:00 2019-04-29 08:00:00 Outpatient LALY RODGERS [facility] [id number] [facility] 2019-04-25 17:01:15 2019-04-25 23:59:00 Outpatient SURESH MCFARLANE [facility] [id number] [facility]
[2023-01-15 10:16] LABS: Absolute Lymphocytes (CBC) 1.5 K/uL (0.7-4.9); Hematocrit 42.1 % (39.6-49.0); Lymphocytes % 14.4 % (15.3-44.8); MCV 89.6 fL (80-100); MPV 7.9 fL (7.6-11.3); Platelets 268 thou/uL (152-406)
[2023-01-15] MEDS ORDERED: ONDANSETRON 4 MG/2 ML VIAL ONE (10:20)
[2023-01-15 10:32] LABS: Bilirubin Total 0.6 mg/dL (0.2-1.0); Potassium 3.7 mEq/L (3.5-5.1); Protein, Total 7.9 g/dL (6.4-8.2)
[2023-01-15] MEDS ORDERED: KETOROLAC 30 MG/ML INJ ONE (10:49)
[2023-01-15] MEDS ORDERED: CLINDAMYCIN 900MG/D5W 900 MG/50 ML IVPB IV ONE (10:49)
--- NOTE | 2023-01-15 11:43 | RAD REPORT ---
EXAM DESCRIPTION: CT - CTFBWCON CLINICAL HISTORY: facial swelling COMPARISON: No comparisons TECHNIQUE: Axial thin cut CT images of the maxillofacial region were obtained with sagittal and franko nal reconstruction images. Images obtained following intravenous administration of 100 mL Isovue-300. All CT scans are performed using dose optimization technique as appropriate and may include automated exposure control or mA/KV adjustment according to patient size. FINDINGS: Extensive inflammatory changes along the right cheek, angle of mandible, and upper neck, e xtending towards the right infraorbital tissues and right medial canthus. No marginally enhancing flu id collections. Somewhat lobulated soft tissue densities in the right medial canthus and subcutaneous soft tissues overlying the right maxillary alveolus may represent small phlegmon or early abscess fo rmation. No evidence of a subperiosteal abscess. At their posterior extent, the inflammatory changes overlying the right mass center muscle. There is involvement of the right buccal mucosa and right ret romolar trigone region as well. No suspicious mucosal masses although the findings could obscure subt le underlying abnormalities. Mildly prominent lymph nodes involving levels 1B and 2A on the right, likely reactive/inflammatory. No periapical collections or significant carious changes on CT. No acute facial bone fracture is seen.The mandible is intact. The globes and intraorbital contents are grossly unremarkable.The paranasal sinuses and mastoids are clear. IMPRESSION: Inflammatory changes suggestive of cellulitis and possibly phlegmon/early abscess format ion, centered on the right cheek soft tissues and right medial canthal region as above. No appreciabl e marginally enhancing abscesses or subperiosteal collections.
--- NOTE | 2023-01-15 13:13 | EDPHYS ---
Physician Documentation [facility] Name: Jovani Vernon Age: 37 yrs Sex: Male : 1985 Arrival Date: 01/15/2023 Time: 09:22 Bed 19 Private MD: ED Physician Mike Wilkes HPI: 01/15 09:42 This 37 yrs old Male presents to ER via Ambulatory with complaints of Facial Swelling. rt 09:42 Patient presents to the ED with facial swelling, abscess. The patient developed facial rt swelling about 10 days ago, on his chin and on his right cheek. He squeezed large amount of pus out of both. He states that the chin lesion has improved however, the swelling to the right cheek has worsened. No difficulty swallowing. Denies other acute complaints, symptoms are moderate in severity, no other aggravating relieving factors.. Historical: - Allergies: 09: PENICILLINS; ll1 - PMHx: :32 None; ll1 - PSHx: :32 None; ll1 - Immunization history:: Adult Immunizations up to date. - Social history:: Smoking status: Patient reports the use of cigarette tobacco products, smokes one-half pack cigarettes per day. - Family history:: not pertinent. ROS: 09:42 Constitutional: Negative for fever, chills, and weight loss, Cardiovascular: Negative rt for chest pain, palpitations, and edema, Respiratory: Negative for shortness of breath, cough, wheezing, and pleuritic chest pain, Abdomen/GI: Negative for abdominal pain, nausea, vomiting, diarrhea, and constipation, Neuro: Negative for headache, weakness, numbness, tingling, and seizure, Psych: Negative for depression, anxiety, suicide ideation, homicidal ideation, and hallucinations, 09:42 Skin: Positive for cellulitis, erythema, Exam: 09:42 Constitutional: This is a well developed, well nourished patient who is awake, alert, rt and in no acute distress. ENT: Nares patent. No nasal discharge, no septal abnormalities noted. Tympanic membranes are normal and external auditory canals are clear. Oropharynx with no redness, swelling, or masses, exudates, or evidence of obstruction, uvula midline. Mucous membranes moist. Neck: Trachea midline, no thyromegaly or masses palpated, and no cervical lymphadenopathy. Supple, full range of motion without nuchal rigidity, or vertebral point tenderness. No Meningismus. Chest/axilla: Normal chest wall appearance and motion. Nontender with no deformity. No lesions are appreciated. Cardiovascular: Regular rate and rhythm with a normal S1 and S2. No gallops, murmurs, or rubs. Normal PMI, no JVD. No pulse deficits. Respiratory: Lungs have equal breath sounds bilaterally, clear to auscultation and percussion. No rales, rhonchi or wheezes noted. No increased work of breathing, no retractions or nasal flaring. Abdomen/GI: Soft, non-tender, with normal bowel sounds. No distension or tympany. No guarding or rebound. No evidence of tenderness throughout. Skin: Warm, dry with normal turgor. Normal color with no rashes, no lesions, and no evidence of cellulitis. MS/ Extremity: Pulses equal, no cyanosis. Neurovascular intact. Full, normal range of motion. Neuro: Awake and alert, GCS 15, oriented to person, place, time, and situation. Cranial nerves II-XII grossly intact. Motor strength 5/5 in all extremities. Sensory grossly intact. Cerebellar exam normal. Normal gait. Psych: Awake, alert, with orientation to person, place and time. Behavior, mood, and affect are within normal limits. 09:42 Head/face: Normocephalic, significant swelling noted to the right cheek, no appreciable headache, erythema noted. Vital Signs: 09:33 BP 149 / 92; Pulse 94; Resp 18; Temp 98.1; Pulse Ox 100% ; Weight 90.72 kg; Height 6 ll1 ft. 0 in. ; Pain 10/10; 10:30 BP 133 / 83; Pulse 87; Resp 16; Pulse Ox 100% on R/A; eh3 11:30 BP 125 / 81; Pulse 75; Resp 16; Pulse Ox 100% on R/A; eh3 12:30 BP 125 / 76; Pulse 76; Resp 16; Pulse Ox 100% on R/A; eh3 09:33 Body Mass Index 27.12 (90.72 kg, 182.88 cm) ll1 09:33 Pain Scale: Adult ll1 MDM: 09:29 Patient medically screened. rt 13:13 Differential Diagnosis Cellulitis, abscess. Data reviewed: vital signs, nurses notes, rt lab test result(s), radiologic studies. Consideration of Admission/Observation Escalation of care including admission/observation considered. No drainable abscess, no clinical evidence for sepsis, labs normal. No evidence of ocular involvement clinically. Stable for trial of outpatient management with antibiotics, return precautions for worsening symptoms or failed outpatient therapy discussed with patient.. I considered the following discharge prescriptions or medication management in the emergency department Medications were administered in the Emergency Department. See MAR. Independent interpretation of the following test(s) in the Emergency Department CT Scan: My interpretation is Inflammatory changes in interpretation of CT scan images. Counseling: I had a detailed discussion with the patient and/or guardian regarding the historical points, exam findings, and any diagnostic results supporting the discharge/admit diagnosis, lab results, radiology results, the need for outpatient follow up, to return to the emergency department if symptoms worsen or persist or if there are any questions or concerns that arise at home. 01/15 09:37 Order name: CBC with Diff; Complete Time: 11:38 rt 01/15 09:37 Order name: CMP; Complete Time: 11:38 rt 01/15 09:37 Order name: CT Facial Bones W/ Con \T\ Mpr rt 01/15 09:47 Order name: Facial Bones W Con ; Complete Time: 13:01 EDMS Administered Medications: 10:09 Drug: Ondansetron IVP 4 mg IVP once; over 2 minutes Route: IVP; Site: right antecubital;eh3 10:30 Follow up: Response: No adverse reaction; Nausea is decreased eh3 10:30 Drug: Ketorolac IVP 15 mg IVP once Route: IVP; Site: right antecubital; eh3 11:00 Follow up: Response: No adverse reaction eh3 10:30 Drug: Clindamycin IVPB 900 mg IVPB once over 30 mins; (mix in 50 mL) Route: IVPB; eh3 Infused Over: 30 mins; Site: right antecubital; 11:10 Follow up: Response: No adverse reaction; IV Status: Completed infusion; IV Intake: [id number] Disposition Summary: 01/15/23 13:12 Discharge Ordered Notes: Location: Home rt Problem: new rt Symptoms: are unchanged rt Condition: Stable rt Diagnosis - facial cellulitis rt Followup: rt - With: Private Physician - When: 5 - 6 days - Reason: Followup: rt - With: Emergency Department - When: As needed - Reason: Worsening of condition Discharge Instructions: - Discharge Summary Sheet rt - Cellulitis, Adult rt Forms: - Medication Reconciliation Form rt - Thank You Letter rt - Antibiotic Education rt - Prescription Opioid Use rt - Patient Portal Instructions rt - Leadership Thank You Letter rt Prescriptions: - Clindamycin HCl 150 mg Oral capsule - take 3 capsule ORAL route every 6 hours for 10 days; 120 capsule; Refills: 0, rt Product Selection Permitted Signatures: Dispatcher [employer] EDHouston Ramires RN RN ll1 Tami Irwin RN RN eh3 Mike Wilkes MD MD rt Corrections: (The following items were deleted from the chart) 11:33 09:47 CBC with Automated Diff ordered. EDMS EDMS 11:33 09:47 Comprehensive Metabolic Panel ordered. EDMS EDMS
--- NOTE | 2023-01-15 13:13 | ER ---
Nurse's Notes [facility] Name: Jovani Vernon Age: 37 yrs Sex: Male : 1985 Arrival Date: 01/15/2023 Time: 09:22 Bed 19 Private MD: Diagnosis: facial cellulitis Presentation: 01/15 09:33 Chief complaint: Patient states: 2 abscess to R side of face for 10 days. R cheek ll1 abscess got way worse overnight with swelling. Abscess to chin getting better. Coronavirus screen: Client denies travel out of the [place] in the last 14 days. At this time, the client does not indicate any symptoms associated with coronavirus-19. Ebola Screen: Patient denies travel to an Ebola-affected area in the 21 days before illness onset. Initial Sepsis Screen: Does the patient meet any 2 criteria? No. Patient's initial sepsis screen is negative. Does the patient have a suspected source of infection? Yes: Skin breakdown/wound. Risk Assessment: Do you want to hurt yourself or someone else? Patient reports no desire to harm self or others. Onset of symptoms was January 06, 2023. 09:33 Method Of Arrival: Ambulatory ll1 09:33 Acuity: BOO 2 ll1 Triage Assessment: 09:35 General: Appears uncomfortable, Behavior is calm, cooperative, appropriate for age. ll1 Pain: Complains of pain in face Pain currently is 10 out of 10 on a pain scale. Quality of pain is described as aching, throbbing. Neuro: Reports headache. Derm: Abscess located on R cheek is hot to touch, is red, is raised. Historical: - Allergies: 09:26 PENICILLINS; ll1 - PMHx: 09:32 None; ll1 - PSHx: 09:32 None; ll1 - Immunization history:: Adult Immunizations up to date. - Social history:: Smoking status: Patient reports the use of cigarette tobacco products, smokes one-half pack cigarettes per day. - Family history:: not pertinent. Screenin:30 [facility] ED Fall Risk Assessment (Adult) Score/Fall Risk Level 0 - 2 = Low Risk. Abuse eh3 screen: Denies threats or abuse. Denies injuries from another. Nutritional screening: No deficits noted. Tuberculosis screening: No symptoms or risk factors identified. Assessment: 09:30 General: Appears in no apparent distress. uncomfortable, Behavior is cooperative, eh3 appropriate for age. Pain: Complains of pain in right cheek. Neuro: Level of Consciousness is awake, alert, obeys commands, Oriented to person, place, time, situation. Cardiovascular: Capillary refill < 3 seconds Patient's skin is warm and dry. Respiratory: Airway is patent Respiratory effort is even, unlabored, Respiratory pattern is regular, symmetrical. GI: Abdomen is round non-distended. Derm: Skin is pink, warm \T\ dry. Wound noted right cheek Wound is 5mm open wound surrounded by erythematous, swollen tissue. Musculoskeletal: Circulation, motion, and sensation intact. 10:30 Reassessment: Patient appears in no apparent distress at this time. Patient and/or eh3 family updated on plan of care and expected duration. Pain level reassessed. Patient is alert, oriented x 3, equal unlabored respirations, skin warm/dry/pink. 11:30 Reassessment: Patient appears in no apparent distress at this time. Patient and/or eh3 family updated on plan of care and expected duration. Pain level reassessed. Patient is alert, oriented x 3, equal unlabored respirations, skin warm/dry/pink. 12:30 Reassessment: Patient appears in no apparent distress at this time. Patient and/or eh3 family updated on plan of care and expected duration. Pain level reassessed. Patient is alert, oriented x 3, equal unlabored respirations, skin warm/dry/pink. Vital Signs: 09:33 BP 149 / 92; Pulse 94; Resp 18; Temp 98.1; Pulse Ox 100% ; Weight 90.72 kg; Height 6 ll1 ft. 0 in. ; Pain 10/10; 10:30 BP 133 / 83; Pulse 87; Resp 16; Pulse Ox 100% on R/A; eh3 11:30 BP 125 / 81; Pulse 75; Resp 16; Pulse Ox 100% on R/A; eh3 12:30 BP 125 / 76; Pulse 76; Resp 16; Pulse Ox 100% on R/A; eh3 09:33 Body Mass Index 27.12 (90.72 kg, 182.88 cm) ll1 09:33 Pain Scale: Adult ll1 ED Course: 09:25 Patient arrived in ED. mr 09:26 Mike Wilkes MD is Attending Physician. rt 09:26 Arm band placed on Patient placed in an exam room, on a stretcher. ll1 09:30 Patient has correct armband on for positive identification. Placed in gown. Bed in low eh3 position. Call light in reach. Side rails up X2. Provided Education on: use of call vargas. Pulse ox on. NIBP on. 09:30 Inserted saline lock: 20 gauge in right antecubital area, using aseptic technique. eh3 Blood collected. 09:35 Triage completed. ll1 09:53 Tami Irwin, RN is Primary Nurse. eh3 10:16 Facial Bones W Con In Process Unspecified. EDMS 13:34 No provider procedures requiring assistance completed. IV discontinued, intact, eh3 bleeding controlled, No redness/swelling at site. Pressure dressing applied. Administered Medications: 10:09 Drug: Ondansetron IVP 4 mg IVP once; over 2 minutes Route: IVP; Site: right antecubital;eh3 10:30 Follow up: Response: No adverse reaction; Nausea is decreased eh3 10:30 Drug: Ketorolac IVP 15 mg IVP once Route: IVP; Site: right antecubital; eh3 11:00 Follow up: Response: No adverse reaction eh3 10:30 Drug: Clindamycin IVPB 900 mg IVPB once over 30 mins; (mix in 50 mL) Route: IVPB; eh3 Infused Over: 30 mins; Site: right antecubital; 11:10 Follow up: Response: No adverse reaction; IV Status: Completed infusion; IV Intake: [id number] Medication: 13:34 VIS not applicable for this client. eh3 Intake: 11:10 IV: 50ml; Total: 50ml. eh3 Outcome: 13:12 Discharge ordered by . rt 13:40 Discharged to home ambulatory, with family, eh3 13:40 Condition: stable 13:40 Discharge instructions given to patient, Instructed on discharge instructions, follow up and referral plans. medication usage, Demonstrated understanding of instructions, follow-up care, medications, Prescriptions given X 1, 13:45 Patient left the ED. eh3 Signatures: Dispatcher [employer] EDAR BrownNeha mason, Reg Reg mr Houston Haines RN RN 1 Tami Irwin, TAMIE RN eh3 Mike Wilkes MD MD rt
[2023-01-15 17:27] VITALS: TEMP 98.1; O2SAT 100
[2023-01-15 17:30] VITALS: BP 125/76
== END 2023-01-15 13:45 | disposition home or self-care (01) ==
LOC: ER 09:22
DX: L03.211 Cellulitis of face (principal)
CPT/HCPCS: 36415; 70487; 76377; 80053; 85025; 96365; 96375; 99284; J2405; Q9967

== ENCOUNTER 2023-05-13 16:19 | Emergency (ER) | payer OTHER ==
[2023-05-13] MEDS ORDERED: ACETAMINOPHEN 500 MG TAB ONE (16:51)
[2023-05-13] MEDS ORDERED: KETOROLAC 30 MG/ML INJ ONE (16:52)
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
--- NOTE | 2023-05-13 17:41 | EDPHYS ---
Physician Documentation [facility] Name: Jovani Vernon Age: 38 yrs Sex: Male : 1985 Arrival Date: 05/13/2023 Time: 16:19 Bed DX1 Private MD: ED Physician Robert Al HPI: 05/12 16:43 This 38 yrs old Male presents to ER via Wheelchair with complaints of Knee ec2 Injury - Left. 16:43 Patient arrives today for evaluation of a left knee injury. States that he twisted his ec2 left knee. Patient complaining of pain at that area. Difficulty with ambulation. Has not taken medications for pain.. Historical: - Allergies: 16:40 PENICILLINS; nj1 - PMHx: 16:40 None; nj1 - Immunization history:: Client reports having NOT received the Covid vaccine. - Infectious Disease History:: Denies. - Social history:: Smoking status: Patient reports the use of cigarette tobacco products, smokes one-half pack cigarettes per day. ROS: 16:43 Constitutional: as per hpi ec2 Exam: 16:43 Constitutional: GEN: NAD Head: atraumatic Eyes: EOMI Ears: External ears are ec2 normal. CV: regular rate LUNGS: no respiratory distress ABD: non-distended SKIN: no evidence of rashes MSK: Ecchymosis and swelling noted at the left knee, pain with range of motion, intact distal neurovascular status. No distal tibia or ankle TTP or deformity. NEURO: moves all extremities equally Vital Signs: 16:39 BP 123 / 89; Pulse 88; Resp 18; Temp 98(O); Pulse Ox 98% ; Weight 90.72 kg; Height 6 nj1 ft. 0 in. ; Pain 10/10; 19:15 BP 121 / 83; Pulse 82; Resp 19; Pulse Ox 99% ; jj7 05/13 14:30 BP 121 / 83; jl7 05/12 16:39 Body Mass Index 27.12 (90.72 kg, 182.88 cm) [facility] 05/12 16:39 Pain Scale: Adult [facility] MDM: 05/12 16:40 Patient medically screened. ec2 16:43 Data reviewed: vital signs. ED course: Patient arrives today for evaluation of left ec2 knee discomfort. Examination remarkable for well-appearing nontoxic dividual is otherwise in no acute distress with MSK findings as noted above. Will obtain radiograph of the knee. Evaluating for bony fracture, additionally considering ligamentous injury.. 17:38 ED course: Knee x-ray independently reviewed and interpreted by me, shows small acute ec2 plateau fracture noted on the posterior portion of the tibial plateau, will place patient in a long-leg posterior splint, refer to orthopedic surgery.. 05/12 16:29 Order name: Knee Left 3 View XRAY; Complete Time: 17:50 ec2 05/12 17:57 Order name: Knee Immobilizer; Complete Time: 19:25 ec2 05/12 17:57 Order name: Crutches; Complete Time: 19:25 ec2 Administered Medications: 16:57 Drug: Ketorolac IM 30 mg IM once Route: IM; Site: right deltoid; [facility] 19:15 Follow up: Response: Marked relief of symptoms jj7 16:57 Drug: Acetaminophen PO 1000 mg PO once Route: PO; [facility] 05/13 14:30 Follow up: BP 121 / 83; Response: Marked relief of symptoms jl7 Disposition Summary: 05/13/23 17:40 Discharge Ordered Notes: Location: Home ec2 Condition: Stable ec2 Diagnosis - Proximal Tibia Fracture ec2 Followup: ec2 - With: Patricio Padron MD - When: - Reason: Recheck today's complaints Discharge Instructions: - Discharge Summary Sheet ec2 - Tibial Fracture, Adult, [id number] ec2 Forms: - Medication Reconciliation Form ec2 - Thank You Letter ec2 - Antibiotic Education ec2 - Prescription Opioid Use ec2 - Patient Portal Instructions ec2 - Leadership Thank You Letter ec2 Prescriptions: - acetaminophen-codeine 300-15 mg Oral tablet - take 1 tablet ORAL route 4 times per day as needed for pain; 25 tablet; ec2 Refills: 0, Product Selection Permitted Signatures: Dispatcher [employer] EDKenia Madrid RN RN nj1 Robert Al MD MD ec2 Jodi Iglesias RN jl7 Ethel Marvin RN jj7 Corrections: (The following items were deleted from the chart) 05/12 17:57 17:39 Splint - Posterior Leg ordered. ec2 ec2
--- NOTE | 2023-05-13 17:46 | RAD REPORT ---
EXAM DESCRIPTION: RAD - Knee Left 3 View - 05/13/2023 5:34 pm CLINICAL HISTORY: knee injury COMPARISON: No comparisons FINDINGS: Moderate osteoarthritis affects the medial joint compartment. Moderate suprapatellar joint fluid. No fracture is visualized.
[2023-05-13 22:16] VITALS: BP 123/89; TEMP 98; O2SAT 98
== END 2023-05-13 19:50 | disposition home or self-care (01) ==
LOC: ER 16:19
DX: S82.102A Unspecified fracture of upper end of left tibia, initial encounter for closed fracture (principal); F17.210 Nicotine dependence, cigarettes, uncomplicated; Z88.0 Allergy status to penicillin
CPT/HCPCS: 96372; 99284